=== PATIENT | female | born 1985 | race Caucasian/White ===

== ENCOUNTER 2023-07-24 03:39 | Emergency (ER) | payer MEDICAID ==
[~2023-07-24] VITALS: Ht 167.6 cm; Wt 86.2 kg
[2023-07-24 03:51] VITALS: BP_SYST 133; PULSE 76; RESP 18; TEMP 97.7; O2SAT 99
[2023-07-24] MEDS ORDERED: HYDROcodone/ACETAMIN 5-325 MG TAB (NORCO/ VICODIN) PO ONE (04:00)
[2023-07-24 06:04] LABS: BASOPHILS % (AUTO) 0.4 % (0.0-2.0); EOSINOPHILS # (AUTO) 0.1 K/uL (0.0-0.4); EOSINOPHILS % (AUTO) 2.8 % (0.0-4.0); HEMATOCRIT 36.7 % (36-48); HEMOGLOBIN 12.2 g/dL (12.0-16.0); LYMPHOCYTES # (AUTO) 2.3 K/uL (1.0-5.5); LYMPHOCYTES % (AUTO) 54.7 % (20.5-51.5); MEAN CORPUSCULAR HEMOGLOBIN 31 pg (27-31); MEAN CORPUSCULAR HGB CONC 33 % (32-36); MEAN CORPUSCULAR VOLUME 93 fL (79.0-98.0); MONOCYTES # (AUTO) 0.2 K/uL (0.0-1.0); MONOCYTES % (AUTO) 5.4 % (1.7-9.3); NEUTROPHILS # (AUTO) 1.5 K/uL (1.8-7.7); NEUTROPHILS % (AUTO) 36.7 % (40.0-70.0); PLATELET COUNT (AUTO) 201 K/uL (130-430); RED BLOOD CELL COUNT(AUTO) 3.96 MIL/uL (4.2-6.2); RED CELL DISTRIBUTION WIDTH 13.2 % (9.0-15.0); WHITE BLOOD COUNT (AUTO) 4.2 K/uL (4.8-10.8)
[2023-07-24 06:14] LABS: CALCIUM 8.3 mg/dL (8.4-11.0); CREATININE 0.69 mg/dL (0.55-1.30); POTASSIUM 3.8 mmol/L (3.5-5.1)
[2023-07-24 06:17] LABS: INR 1.1 (0.8-1.2)
[2023-07-24 06:18] LABS: ALBUMIN 3.3 g/dL (3.4-4.8); TOTAL BILIRUBIN 0.2 mg/dL (0.0-1.0)
[2023-07-24 06:26] LABS: SERUM HCG (QUALITATIVE) NEGATIVE (NEGATIVE)
[2023-07-24 06:26] LABS: BILIRUBIN,URINE NEGATIVE (NEGATIVE); CLARITY/URINE CLEAR (CLEAR); COLOR,URINE YELLOW (YELLOW); GLUCOSE,URINE NEGATIVE (NEGATIVE); KETONES,URINE NEGATIVE (NEGATIVE); LEUKOCYTE ESTERASE ,URINE NEGATIVE (NEGATIVE); NITRITE, URINE NEGATIVE (NEGATIVE); PROTEIN URINE NEGATIVE (NEGATIVE); UROBILINOGEN,URINE 0.2 (0.2-1.0)
[2023-07-24 06:38] LABS: BLOOD, URINE 1+ (NEGATIVE)
[2023-07-24 06:39] LABS: BACTERIA,URINE None Seen /HPF (None Seen); WBC,URINE 0-3 /HPF (0-3)
[2023-07-24] MEDS ORDERED: IBUP-1970 PO (07:20)
[2023-07-24] MEDS ORDERED: HYDR-3917 PO (07:20)
[2023-07-24] MEDS ORDERED: ONDA-8 TL (07:26)
[2023-07-24 07:31] VITALS: BP_SYST 144; PULSE 70; RESP 16; TEMP 97.8; O2SAT 98
== END 2023-07-24 07:30 | disposition home or self-care (01) ==
LOC: SED 03:39
DX: S30.1XXA Contusion of abdominal wall, initial encounter (principal); K80.20 Calculus of gallbladder without cholecystitis without obstruction; N83.202 Unspecified ovarian cyst, left side; Z79.899 Other long term (current) drug therapy; W01.190A Fall on same level from slipping, tripping and stumbling with subsequent striking against furniture, initial encounter; Y93.89 Activity, other specified; Y92.89 Other specified places as the place of occurrence of the external cause; Y99.8 Other external cause status
CPT/HCPCS: 36415; 76376; 80053; 81000; 81001; 81015; 81025; 83690; 84703; 85025; 85610-TC; 99284

== ENCOUNTER 2023-08-19 23:07 | Emergency (ER) | payer MEDICAID ==
[~2023-08-19] VITALS: Ht 167.6 cm; Wt 88.5 kg
[~2023-08-19 23:07] MED LIST: HYDR-3917 PO; IBUP-1970 PO; ONDA-8 TL
[2023-08-19 23:19] VITALS: BP_SYST 132; PULSE 63; RESP 20; TEMP 97.3; O2SAT 98
[2023-08-19] MEDS ORDERED: DIPHENHYDRAMINE INJ 50 MG/ML VIAL IM ONE (23:30)
[2023-08-19] MEDS ORDERED: methylPREDNISolone SOD SUCC/PF 62.5 MG/ML VIAL IM ONE (23:30)
[2023-08-19] MEDS ORDERED: MED4 PO (23:58)
[2023-08-19] MEDS ORDERED: FEXO180T94 PO (23:58)
[2023-08-20 00:05] VITALS: BP_SYST 128; PULSE 72; RESP 18; TEMP 97.1; O2SAT 98
== END 2023-08-20 00:05 | disposition home or self-care (01) ==
LOC: SED 23:07
DX: L50.9 Urticaria, unspecified (principal); Z79.899 Other long term (current) drug therapy
CPT/HCPCS: 99284; 96372; J1200; J2930

== ENCOUNTER 2023-10-23 09:19 | Emergency (ER) | payer MEDICAID ==
[~2023-10-23] VITALS: Ht 167.6 cm; Wt 88.5 kg
[~2023-10-23 09:19] MED LIST changes: +FEXO180T94 PO; +MED4 PO
[2023-10-23 09:24] VITALS: BP_SYST 140; PULSE 64; RESP 18; TEMP 98.1; O2SAT 96
[2023-10-23] MEDS ORDERED: PRED20TA PO (11:21)
[2023-10-23 11:34] VITALS: BP_SYST 122; PULSE 76; RESP 19; TEMP 98.2; O2SAT 99
== END 2023-10-23 11:34 | disposition home or self-care (01) ==
LOC: SED 09:19
DX: G51.0 Bell's palsy (principal); R22.0 Localized swelling, mass and lump, head; Z79.899 Other long term (current) drug therapy
CPT/HCPCS: 70450-TC; 76376; 99284